=== PATIENT | female | born 1980 | race Hispanic/Latino ===

== ENCOUNTER 2017-02-26 11:40 | Emergency (ER) | payer MEDICAID, SELFPAY ==
[2017-02-26] MEDS ORDERED: Fentanyl 100 MCG/2 ML VIAL ONE (12:10)
[2017-02-26] MEDS ORDERED: Diprivan 20 ML ONE (12:23)
== END 2017-02-26 13:41 | disposition home or self-care (01) ==
LOC: ERS 11:40
DX: S03.03XA Dislocation of jaw, bilateral, initial encounter (principal); X58.XXXA Exposure to other specified factors, initial encounter
CPT/HCPCS: 21480; 94760; 96361; 96374; 99152; J2704; J3010

== ENCOUNTER 2020-09-01 08:07 | Observation (INO) | payer SELFPAY ==
[2020-09-01 08:55] LABS: BHCG - Serum Negative (NEGATIVE); Pregs Control Background? CLEAR/WHITE (CLR/WHITE); Pregs Control Bar Appear? YES (CONTROL BAR)
[2020-09-01 08:57] LABS: Hemoglobin 14.5 g/dL (12.0-16.0); Mean Corpuscular HGB CONC 34.2 g/dL (32.0-36.0); Mean Corpuscular Hemoglobin 31.5 pg (27.0-31.0); Mean Corpuscular Volume 92.3 fL (78.0-98.0); Mean Platelet Volume 7.6 fL (7.4-10.4); Platelet Count 275 thou/uL (130-400); RBC Distribution Width 11.9 % (11.5-14.5); White Blood Cell (WBC) Count 20.6 thou/uL (4.8-10.8)
[2020-09-01] MEDS ORDERED: Ondansetron PF 4 MG/2 ML Vial ONE ×2 (09:05→18:30)
[2020-09-01] MEDS ORDERED: Morphine 4 MG/ML VIAL ONE (09:05)
[2020-09-01 09:12] LABS: ALT (SGPT) 30 U/L (8-55); AST (SGOT) 21 U/L (5-34); Albumin 4.1 g/dL (3.5-5.0); Alkaline Phosphatase 87 U/L (40-110); Anion Gap 10 mmol/L (10-20); BUN (Urea Nitrogen) 7 mg/dL (7.0-18.7); Bilirubin, Total 1.2 mg/dL (0.2-1.2); Calc. Creatinine Clearance 0 mL/min (70-130); Calcium 8.8 mg/dL (7.8-10.44); Carbon Dioxide 24 mmol/L (22-29); Chloride 107 mmol/L (98-107); Globulin 3.4 g/dL (2.4-3.5); Glucose 105 mg/dL (70-105); Lipase 15 U/L (8-78); Potassium 3.8 mmol/L (3.5-5.1); Protein, Total 7.5 g/dL (6.0-8.3); Sodium 137 mmol/L (136-145)
[2020-09-01 09:31] LABS: Band 6 % (5-11); Eosinophils 1 % (0-10); Lymphocytes 8 % (21-51); MDiff Complete? YES; Monocytes 7 % (0-10); Neutrophil 78 % (42-75); Platelet Morphology Comment Appears Adequate; RBC Morphology Normal
[2020-09-01] MEDS ORDERED: Piperacillin/Tazobactam 4.5 GM VIAL ONE (10:24)
[2020-09-01 10:47] LABS: Bacteria/HPF None Seen HPF (None Seen); Bilirubin Negative (Negative); Blood, Urine Trace (Negative); Clarity Clear (Clear); Glucose, Urine (Dipstick) Normal (Negative); Ketone, Urine Negative (Negative); Leukocyte Negative Leu/uL (Negative); Nitrite Negative (Negative); Protein, Urine (Dipstick) Negative (Neg-Trace); RBC/HPF 0-3 HPF (0-3); Urobilinogen Normal mg/dL (Less than 2); WBC/HPF 0-3 HPF (0-3); pH, Urine 7.5 (5.0-9.0)
[2020-09-01 10:49] LABS: Specific Gravity, Urine 1.054 (1.002-1.036)
[2020-09-01] MEDS ORDERED: Acetaminophen 325 MG TAB PO PRN (13:00)
[2020-09-01] MEDS ORDERED: Lactated Ringer's 1,000 ML IV SCH (13:00)
[2020-09-01] MEDS ORDERED: Ondansetron PF 4 MG/2 ML Vial IVP PRN ×2 (13:00→19:29)
[2020-09-01] MEDS ORDERED: Ondansetron ODT 4 MG TAB SL PRN (13:00)
[2020-09-01 13:31] LABS: SARS-CoV-2 NAA Rapid Test Not Detected (NotDetected)
[2020-09-01] MEDS ORDERED: Morphine 2 MG/ML VIAL SLOW IVP PRN ×2 (14:13→19:29)
[2020-09-01] MEDS ORDERED: Morphine 4 MG/ML VIAL SLOW IVP PRN ×2 (14:13→19:29)
[2020-09-01] MEDS ORDERED: Piperacillin/Tazobactam 3.375 GM in Sodium Chloride 0.9% 100 ML IVPB SCH (16:00)
[2020-09-01 16:47] VITALS: BMI 26.9
[2020-09-01] MEDS ORDERED: Lidocaine 1% w/Epinephrine 1:100K 20 ML VIAL ONE (18:11)
[2020-09-01] MEDS ORDERED: Bupivacaine 0.25% HCL 30 ML VIAL ONE (18:11)
[2020-09-01] MEDS ORDERED: Midazolam HCl 2 mg/2 ml Vial ONE (18:25)
[2020-09-01] MEDS ORDERED: Fentanyl 100 MCG/2 ML VIAL ONE ×3 (18:25→19:51)
[2020-09-01] MEDS ORDERED: Succinylcholine 200 MG/10 ml SYRINGE FS ONE (18:30)
[2020-09-01] MEDS ORDERED: PROPOFOL 200 MG/20 ML VIAL ONE (18:30)
[2020-09-01] MEDS ORDERED: Rocuronium Bromide 10 MG/ML (10ML VIAL) ONE (18:30)
[2020-09-01] MEDS ORDERED: Dexamethasone 20 MG/5 ML VIAL ONE (18:30)
[2020-09-01] MEDS ORDERED: Glycopyrrolate 0.2 MG/ML 5 ML SYRINGE ONE (18:30)
[2020-09-01] MEDS ORDERED: Lidocaine 1% PF 5 ML VIAL ONE (18:30)
[2020-09-01] MEDS ORDERED: Dextrose 50% Abboject 50 ML SYRINGE SLOW IVP PRN (19:29)
[2020-09-01] MEDS ORDERED: Promethazine HCl 25 MG/ML VIAL IM PRN (19:29)
[2020-09-01] MEDS ORDERED: hydrALAZINE 20 MG/ML VIAL SLOW IVP PRN (19:29)
[2020-09-01] MEDS ORDERED: Ketorolac Tromethamine 30 MG/ML VIAL IVP PRN (19:29)
[2020-09-01] MEDS ORDERED: Dextrose 5% in Water 1,000 ML IV PRN (19:29)
[2020-09-01] MEDS ORDERED: Ondansetron HCl/PF 4 MG/2 ML Vial IVP PRN (19:44)
[2020-09-01] MEDS: Famotidine 20 MG TAB PO SCH (20:27)
[2020-09-01] MEDS: D5 1/2 NS w/20 mEq KCL 1,000 ML IV SCH (20:35)
[2020-09-01] MEDS: Famotidine/PF 20 mg/2ml Vial SLOW IVP SCH (20:39)
[2020-09-01] MEDS: HYDROcodone/Acetaminophen 7.5/325 mg Tablet PO PRN (21:36)
[2020-09-01] MEDS: Piperacillin/Tazobactam 3.375 GM in Sodium Chloride 0.9% 100 ML IVPB SCH (23:05)
[2020-09-02] MEDS: Piperacillin/Tazobactam 3.375 GM in Sodium Chloride 0.9% 100 ML IVPB SCH (06:07)
[2020-09-02] MEDS: D5 1/2 NS w/20 mEq KCL 1,000 ML IV SCH ×2 (06:35→08:28)
[2020-09-02] MEDS: HYDROcodone/Acetaminophen 7.5/325 mg Tablet PO PRN (07:19)
[2020-09-02] MEDS: Famotidine 20 MG TAB PO SCH (08:27)
[2020-09-02] MEDS: Famotidine/PF 20 mg/2ml Vial SLOW IVP SCH (11:30)
[2020-09-02 12:02] VITALS: BP 100/66; TEMP 98.7
== END 2020-09-02 12:36 | disposition home or self-care (01) ==
LOC: ERS 08:07 → SURG A 10:32
PROVIDERS: ADMIT Surgery; ATTEND Surgery
PROC: 0DTJ4ZZ Resection of Appendix, Percutaneous Endoscopic Approach (ICD-10-PCS; principal; 2020-09-01)
DX: K35.32 Acute appendicitis with perforation, localized peritonitis, and gangrene, without abscess (principal); K38.1 Appendicular concretions; Z20.822 Contact with and (suspected) exposure to COVID-19
CPT/HCPCS: 0240U; 74177; 80053; 81003; 81015; 83690; 84703; 85025; 88304; 96365; 96366; 96375; 96376; G0378; J1100; J2250; J2270; J2405; J2543; J2704; J3010; J3480; J3490; S0020